=== PATIENT | female | born 1990 | race Two or more races ===

== ENCOUNTER 2020-01-05 19:16 | Emergency (ER) | payer MEDICAID ==
[~2020-01-05] VITALS: Ht 165.1 cm; Wt 104.0 kg
[2020-01-05 19:53] VITALS: BP 147/92
[2020-01-05] MEDS ORDERED: ACETAMINOPHEN 500 MG TABLET ONE (20:17)
[2020-01-05] MEDS ORDERED: ACETAMINOPHEN 500 MG TABLET PO ONE (20:30)
[2020-01-05 20:38] LABS: RAPID INFLUENZA A Negative (Negative); RAPID INFLUENZA B Negative (Negative)
[2020-01-05] MEDS ORDERED: OSELTAMIVIR 75 MG CAPSULE ONE (20:42)
[2020-01-05] MEDS ORDERED: OSELTAMIVIR 75 MG CAPSULE PO ONE (21:00)
== END 2020-01-05 21:34 | disposition home or self-care (01) ==
LOC: ED 20:00
DX: J11.1 Influenza due to unidentified influenza virus with other respiratory manifestations (principal)
CPT/HCPCS: 87400; 99283